=== PATIENT | female | born 1950 | race Caucasian/White ===

== ENCOUNTER 2019-12-07 04:45 | Emergency (ER) | payer MEDICARE, BC ==
[~2019-12-07] VITALS: Ht 144.8 cm; Wt 43.5 kg
--- NOTE | 2019-12-07 04:56 | NUR ---
PATIENT CAME TO ER BED 9 C/O LEFT LEG PAIN. PATIENT STATES THAT SHE HAD FELL BECAUSE IT WAS SLIPPERY. NO SHORTENING NOTED. NO BRUISING, OR ASYMMETRY OF THE LEG. C/O OF THROBBING PAIN IN LEFT LEG FROM LEFT HIP TO RADIATING TO THE KNEE. AAOX4. NO SOB. BREATHING EVENLY AND UNLABORED ON ROOM AIR. CONNECTED TO MONITOR.
[2019-12-07] MEDS ORDERED: IBUPROFEN 600 MG TABLET PO ONE ×2 (04:59→05:00)
--- NOTE | 2019-12-07 05:01 | NUR ---
ABLE TO BEAR WEIGHT ON LEFT LEG WITH ASSISTANCE.
[2019-12-07 05:51] VITALS: BP 108/77
--- NOTE | 2019-12-07 05:51 | NUR ---
Patient discharged to home in stable condition. Written and verbal after care instructions given. Patient verbalizes understanding of instruction.
== END 2019-12-07 05:53 | disposition home or self-care (01) ==
LOC: ER 04:49
DX: S70.02XA Contusion of left hip, initial encounter (principal); W01.0XXA Fall on same level from slipping, tripping and stumbling without subsequent striking against object, initial encounter; Y93.89 Activity, other specified; Y92.89 Other specified places as the place of occurrence of the external cause; Y99.8 Other external cause status
CPT/HCPCS: 73502